=== PATIENT | female | born 1970 | race Caucasian/White ===

== ENCOUNTER 2025-01-21 17:01 | Outpatient (CLI) | payer OTHER, SELFPAY ==
--- NOTE | 2025-01-21 17:05 | XR_ITS ---
PROCEDURE INFORMATION: Exam: XR Left Shoulder Exam date and time: 01/21/2025 5:02 PM Age: 54 years old Clinical indication: Pain; Shoulder; Left; Additional info: Left shoulder pain S/P fall TECHNIQUE: Imaging protocol: Radiologic exam of the left shoulder. Views: 2 or more views. COMPARISON: No relevant prior studies available. FINDINGS: Bones/joints: Small marginal osteophytes and degenerative changes involving the left AC joint. No evidence of acute osseous abnormality. Soft tissues: Normal. IMPRESSION: 1. Small marginal osteophytes and degenerative changes involving the left AC joint. 2. No evidence of acute osseous abnormality.
== END 2025-01-21 23:59 | disposition home or self-care (01) ==
PROVIDERS: PCP Nurse Practitioner Family; Visit Provider Nurse Practitioner Family
DX: M19.012 Primary osteoarthritis, left shoulder (principal); M25.712 Osteophyte, left shoulder; W19.XXXA Unspecified fall, initial encounter
CPT/HCPCS: 73030

== ENCOUNTER 2025-02-08 14:33 | Outpatient (CLI) | payer OTHER, SELFPAY ==
--- OUTSIDE RECORDS SUMMARY | 2025-01-02 18:08 | XMS_ITS | Encounter Summary ---
Author Organization [facility] Address [address] [place] [address] Care Team Providers Care Recreation Attendant Supervisor Name Role Phone Mona Hi DO Primary Care Provider [phone] Source Comments This information has been disclosed [...] release of HIV test results or diagnoses. [id number] Reason for Referral * Imaging/Cardiovascular Scan (Routine) - New Request Specialty Diagnoses / Procedures Referred By Contac t Referred To Contact Cardiology Procedures Device Check - Remote Hubert Lux MD [address] [address] Phone: tel: fax: Referral ID Status Reason Start Date Expiration Date V isits Requested Visits Authorized [id number] New Request 01/02/2025 07/01/2025 1 1 Reason for Visit * Imaging/Cardiovascular Scan (Routine) - New Request Specialty Diagnoses / Procedures Referred By Contac t Referred To Contact Cardiology Procedures Device Check - Remote Hubert Lux MD [address] [place] [address] Phone: tel: fax: Referral ID Status Reason Start Date Expiration Date V isits Requested Visits Authorized [id number] New Request 01/02/2025 07/01/2025 1 1 Encounter Details Date Type Department Care Team (Latest Contact Info) Description 01/02/2025 6:08 PM EDT - 01/02/2025 11:59 PM EDT Hospital Encounter [facility] Cardiac Stress Lab at [facility] [address] [place] [address] Hubert Lux MD [address] [address] Discharge Disposition: Home or Self Care WITHOUT Home Care Services Social History Tobacco Use Types Packs/Day Years Used Date Smoking Tobacco: Never Smokeless Tobacco: Never Alcohol Use Standard Drinks/Week Comments Yes 7 (1 standard drink = 0.6 oz pur e alcohol) glass of wine [place] [employer] Answer Date Recorded In the past 12 months has [employer], gas, oil, or water [employer] threatened to shut off services in your [...] any time in the past 12 m [facility], were you homeless or living in a residential (including now)? No 10/21/2024 Yearly Questionnaire Answer [...] on filedocumented in this encounter Care Teams Recreation Attendant Supervisor Relationship Specialty Start Date End Date Mona Hi DO [address] [facility] [place] [address] [place] [address] PCP - General Family Medicine 10/22/24 documented as of this encounter
--- OUTSIDE RECORDS SUMMARY | 2025-01-31 15:23 | XMS_ITS | Encounter Summary ---
Author Organization [facility] Address [address] [place] [address] Care Team Providers Care Director Of Digital Platforms Name Role Phone Mona Hi DO Primary Care Provider [phone] Source Comments This information has been disclosed [...] release of HIV test results or diagnoses. [id number] Reason for Referral * Imaging/Cardiovascular Scan (Routine) - New Request Specialty Diagnoses / Procedures Referred By Contac t Referred To Contact Cardiology Procedures Device Check - Remote Hubert Lux MD [address] [place] [address] Phone: tel: fax: Referral ID Status Reason Start Date Expiration Date V isits Requested Visits Authorized [id number] New Request 01/31/2025 07/30/2025 1 1 Reason for Visit * Imaging/Cardiovascular Scan (Routine) - New Request Specialty Diagnoses / Procedures Referred By Inderjit t Referred To Contact Cardiology Procedures Device Check - Remote Hubert Lux MD [address] [place] [address] Phone: tel: fax: Referral ID Status Reason Start Date Expiration Date V isits Requested Visits Authorized [id number] New Request 01/31/2025 07/30/2025 1 1 Encounter Details Date Type Department Care Team (Latest Contact Info) Description 01/31/2025 3:23 PM EDT - 01/31/2025 11:59 PM EDT Hospital Encounter [facility] Cardiac Stress Lab at [facility] [address] [place] [address] Hubert Lux MD [address] [place] [address] Discharge Disposition: Home or Self Care WITHOUT Home Care Services Social History Tobacco Use Types Packs/Day Years Used Date Smoking Tobacco: Never Smokeless Tobacco: Never Alcohol Use Standard Drinks/Week Comments Yes 7 (1 standard drink = 0.6 oz pur e alcohol) glass of wine [employer] Answer Date Recorded In the past 12 months has [employer], gas, oil, or water [employer] threatened to shut off services in your [...] any time in the past 12 m [facility], were you homeless or living in a senior care (including now)? No 10/21/2024 Yearly Questionnaire Answer [...] on filedocumented in this encounter Care Teams Director Of Digital Platforms Relationship Specialty Start Date End Date Mona Hi DO [address] [facility] [place] [address] [place] [address] PCP - General Family Medicine 10/22/24 documented as of this encounter
--- OUTSIDE RECORDS SUMMARY | 2025-02-08 14:38 | XMS_ITS | Encounter Summary ---
Author Organization [facility] Address [facility] [place] [address] Care Team Providers Care Boot Lace Cutter Machine Name Role Phone Mona Hi DO Primary Care Provider [phone] Source Comments This information has been disclosed [...] release of HIV test results or diagnoses. [id number] Reason for Referral * Imaging/Cardiovascular Scan (Routine) - New Request Specialty Diagnoses / Procedures Referred By Inderjit tan Referred To Contact Cardiology Procedures Device Check - Remote Hubert Lux MD [address] [place] [address] Phone: tel: fax: Referral ID Status Reason Start Date Expiration Date V isits Requested Visits Authorized [id number] New Request 01/02/2025 07/01/2025 1 1 Encounter Details Date Type Department Care Team (Late st Contact Info) Description 12/31/2024 Orders Only [facility] Cardiac Stress Lab at [facility] Office [address] [facility] [address] [place] [phone] Hubert Lux MD [address] [place] [address] Social History Tobacco Use Types Packs/Day Years Used Date Smoking Tobacco: Never Smokeless Tobacco: Never Alcohol Use Standard Drinks/Week Comments Yes 7 (1 standard drink = 0.6 oz pur e alcohol) glass of wine [employer]ly [employer] Answer Date Recorded In the past 12 months has th e [employer], gas, oil, or water company threatened to shut off services in your [...] money to buy more. Never true 10/21/19 Within the past 12 months, t he [...] any time in the past 12 m [facility], were you homeless or living in a [...] on file documented as of this encounter Plan of Treatment Not on file documented as of this encounter Results * Device Check - Remote (01/02/2025 6:08 PM EDT) 12/31/2024 1:51 PM EDT Hubert Lux MD CV CARDIAC SERVICES ORDERABL ES Final Result Performing Organization Address City/State/[facility] Co de Phone Number RADNET documented in this encounter Visit Diagnoses Not on filedocumented in this encounter Care Teams Boot Lace Cutter Machine Relationship Specialty Start Date End Date Mona Hi DO [address] [facility] [place] [address] PCP - General Family Medicine 10/22/24 documented as of this encounter
--- OUTSIDE RECORDS SUMMARY | 2025-02-08 14:38 | XMS_ITS | Clinical Summary ---
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 30 tablet 5 Active acetaminophen (TYLENOL) 325 MG tablet Take 2 tablets (650 mg total) by mouth every 6 (six) hours as needed for mild pain or Temp > or equal to 101F (38.3C). 5 Active aspirin 81 MG chewable tabletIndicatio ns:Ischemic Stroke Chew 1 tablet (81 mg total) daily with breakfast Indications: Stroke Due To Limited Blood Flow. 5 Active atorvastatin (LIPITOR) 40 MG tablet Take 1 tablet (40 mg total) by mouth nightly. 30 tablet 5 Active multivitamin w/ minerals (THERA M PLUS) Tab/Cap tablet Take 1 each (1 tablet total) by mouth daily with lunch. 5 Active Active Problems Problem Noted Date Diagnosed Date Cervical radiculopathy 10/30/2024 Irritable bowel syndrome 10/30/2024 Migraine 10/30/2024 Hyperlipidemia 10/30/2024 Ischemic stroke 10/29/2024 Alzheimer's disease 02/01/2024 Encounters Date Type Department Care Team Description 11/08/2024 Plan of Care Documentation [facility] [address] [place] [address] 10/29/2024 11:30 AM EST - 11/12/2024 10:45 AM EDT Hospital Encounter [facility] [address] [place] [address] Nehemiah Cooper MD Williams, Jacob Z, MD Jones, Matthew P, MD Discharge Disposition: Home under care of Home Health Org from Last 3 Months Social History Tobacco Use Types Packs/Day Years Used Date Smoking Tobacco: Never Smokeless Tobacco: Never Tobacco Cessation:Counseling Given: Not Answered Alcohol Use Standard Drinks/Week Comments Never 0 (1 standard drink = 0.6 oz pur e alcohol) [facility] Utilities Answer Date Recorded In the past 12 months has th e electric, gas, oil, or water company threatened to shut off services in your home? No 10/31/2024 Social Connection and Isolation Panel [NHANES] A nswer Date Recorded In a typical week, how many times do you talk on the phone with family, friends, or neighbors? Three times a week 11/01/19 How often do you get togethe r with friends or relatives? Three times a week 10/31/2024 How often do you attend chur ch or baptism services? 1 to 4 times per year 10/31/2024 Do you belong to any clubs o r organizations such as episcopalian groups, unions, fraternal or athletic groups, or school groups? Yes 10/31/2024 How often do you attend meet ings of the clubs or organizations you belong to? 1 to 4 times per year 10/31/2024 Are you , , di vorced, , never , or living with a partner? Never 10/31/2024 AUDIT-C Answer Date Recorded Q1: How often do you have a drink containing alcohol? Never 10/29/2024 Q2: How many drinks containi ng alcohol do you have on a typical day when you are drinking? Patient does not drink Q3: How often do you have si x or more drinks on one occasion? Never 10/29/2024 Overall Financial Resource Strain (CARDIA) Answe r Date Recorded How hard is it for you to pa y for the very basics like food, housing, medical care, and heating? Not hard at all 10/31/2024 [facility] [place] [facility] Occupat ional Health - Occupational Stress Questionnaire Answer Date Recorded Do you feel stress - tense, restless, nervous, or anxious, or unable to sleep at night because your mind is troubled all the time - these days? Not at all 11/12/2024 Hunger Vital Sign Answer Date Recorded Within the past 12 months, y ou worried that your food would run out before you got the money to buy more. Never true 11/01/19 25 Within the past 12 months, t he food you bought just didn't last and you didn't have money to get more. Never true 10/31/2024 Housing Stability Vital Sign Answer Sharad e Recorded In the last 12 months, was t here a time when you were not able to pay the mortgage or rent on time? No 10/31/2024 In the past 12 months, how m any times have you moved where you were living? 0 10/31/2024 At any time in the past 12 m [facility], were you homeless or living in a mcfp (including now)? No 10/31/2024 Domestic Abuse Assessment Answer Date R ecorded Do you feel safe in your relationships at home? Yes 11/08/2024 Physical Abuse Denies 11/08/2024 HRSN Domestic Abuse - Type of Abuse Not on file 11/08/2024 HRSN Domestic Abuse - Time Frame Not on file 11/08/2024 HRSN Domestic Abuse - Signs and Symptoms Not on file 11/08/2024 Verbal Abuse Denies 11/08/2024 HRSN Domestic Abuse - Reported To Not on file 11/08/2024 SM SDOH Transportation Source Answer Da te Recorded Has lack of transportation k ept you from medical appointments or from getting medications? No 11/12/2024 Has lack of transportation k ept you from meetings, work, or from getting things needed for daily living? No 11/12/2024 HRSN Depression PHQ-2 Answer Date Recor ded Feeling down, depressed, or hopeless 0 11/12/2024 Little interest or pleasure in doing things 0 11/12/2024 Comments Unknown Sex and Gender Information Value Date Recorded Sex Assigned at Not on file Legal Sex Female 3:44 PM EST Gender Identity Not on file Sexual Orientation Not on file Last Filed Vital Signs Vital Sign Reading Time Taken Comments Blood Pressure 114/78 11/12/2024 5:34 AM EDT Pulse 62 11/12/2024 5:34 AM EDT Temperature 36.9 C (98.5 F) 11/12/2024 5:34 AM EDT Respiratory Rate 16 11/12/2024 5:34 AM EDT Oxygen Saturation 96% 11/12/2024 5:34 AM EDT Inhaled Oxygen Concentration - - Weight 50.1 kg (110 lb 8 oz) 11/12/2024 4:00 AM EDT Height 152.4 cm (5') 10/29/2024 11:57 AM EST Body Mass Index 21.58 10/29/2024 11:57 AM EST Plan of Treatment Not on file Medical Devices Implanted Type Area Salesperson Men'S Hats Device Identifier Shelf Expiration Date Model / Serial / Lot Implantable Loop Recorder- [id number] Implanted:10/28 (Quantity not on file) Implantable Loop Recorder Procedures Procedure Name Priority Date/Time Associated Diagnosis Comments INCENTIVE SPIROMETRY RT Routine 11/11/2024 6:00 AM EDT INCENTIVE SPIROMETRY RT Routine 11/10/2024 10:00 PM EDT INCENTIVE SPIROMETRY RT Routine 11/09/2024 10:00 PM EDT QUANTIFERON TBGLD PLUS Routine 11/09/2024 4:30 PM EDT INCENTIVE SPIROMETRY RT Routine 11/08/2024 10:00 PM EDT INCENTIVE SPIROMETRY RT Routine 11/08/2024 6:00 AM EDT from Last 3 Months Results * Quantiferon TB gold plus (11/09/2024 4:30 PM EDT) [facility] TB-SPOT NEGATIVE NEGATIVE 11/11/2024 2:57 PM EDT [facility] LAB Comment: Performed at: [facility]. (NOTE) Negative Normal Value: Negative A negative test result does not exclude the possibility of exposure to or infection with Mycobacterium tuberculosis (M. tuberculosis). Patients with recent exposure to TB infected individuals exhibiting a negative T-SPOT.TB result should be considered for retesting within 6 weeks or if other relevant clinical symptoms indicate. Results from T-SPOT.TB testing must be used in conjunction with each individual's epidemiological history, current medical status, and results of other diagnostic evaluations. The T SPOT.TB test is qualitative and results are reported as positive, borderline or negative, given that the test controls perform as expected. In line with the Centers for Disease Control and Prevention's 2010 recommendation to report quantitative measurements alongside the qualitative result, the laboratory provides spot counts for informational purposes only. The T-SPOT.TB test should not be interpreted as a quantitative test. NILNEGCTRL PASSED 11/11/2024 2:57 PM EDT [facility] PANEL A SPOT COUNT CORRECTED FOR NEG CONTROL 0 11/11/2024 2:57 PM EDT [facility] PANEL B SPOT COUNT CORRECTED FOR NEG CONTROL 0 11/11/2024 2:57 PM EDT [facility] POSITIVE CONTROL PASSED 11/12/19 2:57 PM EDT [facility] 11/09/2024 4:30 PM EDT 11/09/2024 5:58 PM EDT us Moses Serrano MD LAB BLOOD ORDERABLES Final Re sult [facility] [id number] [id number], [place] from Last 3 Months Advance Directives * Full Resuscitation (Latest Code Status on File) Date Activated Date Inactivated Comments 10/29/2024 8:37 PM 11/12/2024 12:48 PM Question Answer Comments I have discussed this order with the patient or his/her surrogate and have received informed consent. Yes
--- OUTSIDE RECORDS SUMMARY | 2025-02-08 14:39 | XMS_ITS | Clinical Summary ---
Author Organization [facility] Address [facility] [place] [address] Care Team Providers Care Wildlife Policy Professional Name Role Phone Mona Hi DO Primary Care Provider [phone] Source Comments This information has been disclosed to you from confidential records protectedfrom disclosure by state law. You shall make no further disclosure of thisinformation without the specific, written, and informed release of theindividual to whom it pertains, or as otherwise permitted by law. A generalauthorization for the release of medical or other information is not sufficientfor the purposes of therelease of HIV test results or diagnoses. [id number] Allergies No known active allergies Medications donepeziL (ARICEPT) 10 MG tablet Take 1 tablet (10 mg total) by mouth at bedtime. Active aspirin 81 MG chewable tablet Chew 1 tablet (81 mg total) by mouth daily with breakfast. 10/28/2024 Active atorvastatin (LIPITOR) 40 MG tablet Take 1 tablet (40 mg total) by mouth at bedtime. 10/27/2024 Active apixaban (ELIQUIS) 2.5 mg Tab Take 1 tablet (2.5 mg total) by mouth. Active Active Problems Problem Noted Date Diagnosed Date Acute ischemic right MCA stroke 10/24/2024 Alzheimer disease 02/01/2024 Encounters Date Type Department Care Team Description 01/31/2025 3:23 PM EDT - 01/31/2025 11:59 PM EDT Hospital Encounter [facility] Cardiac Stress Lab at [facility] [address] [facility] [address] [place] [address] Hubert Lux MD Discharge Disposition: Home or Self Care WITHOUT Home Care Services 01/31/2025 Orders Only [facility] Cardiac Stress Lab at [facility] [address] [place] [address] Hubert Lux MD 01/02/2025 6:08 PM EDT - 01/02/2025 11:59 PM EDT Hospital Encounter [facility] Cardiac Stress Lab at [facility] [address] [place] [address] Hubert Lux MD Discharge Disposition: Home or Self Care WITHOUT Home Care Services 12/31/2024 Orders Only [facility] Cardiac Stress Lab at [facility] [address] [place] [address] Hubert Lux MD 11/30/2024 6:15 PM EDT - 11/30/2024 11:59 PM EDT Hospital Encounter [facility] Cardiac Stress Lab at [facility] [address] [place] [address] Jeremie Pope DO Discharge Disposition: Home or Self Care WITHOUT Home Care Services 11/30/2024 Orders Only [facility] Cardiac Stress Lab at [facility] [address] [place] [address] Jeremie Pope DO 11/29/2024 Telephone [facility] Neurology at [facility] [address] [place] [address] Brunilda Corss DO 11/25/2024 2:00 PM EDT Office Visit [facility] Neurology at [facility] [address] [place] [address] Brunilda Cross DO Cerebrovascular accident (CVA) due to other mechanism ([facility]) (Primary Dx) 11/24/2024 Telephone [facility] Neurology at [facility] [address] [place] [address] Brunilda Cross DO from Last 3 Months Family History Medical History Relation Comments Cancer Father Relation Status Comments Father Social History Tobacco Use Types Packs/Day Years Used Date Smoking Tobacco: Never Smokeless Tobacco: Never Tobacco Cessation:Counseling Given: Not Answered Alcohol Use Standard Drinks/Week Comments Yes 7 (1 standard drink = 0.6 oz pur e alcohol) glass of wine nightly [employer] Answer Date Recorded In the past 12 months has th e [employer], gas, oil, or water [employer] threatened to shut off services in your [...] any time in the past 12 m [facility], were you homeless or living in a correction (including now)? No 10/21/2024 Yearly Questionnaire Answer [...] Sign Reading Time Taken Comments Blood Pressure 132/86 11/25/2024 2:09 PM EDT Pulse 63 11/25/2024 2:09 PM EDT Temperature 36.9 C (98.4 F) 10/29/2024 7:50 AM EST Respiratory Rate 16 10/29/2024 7:50 AM EST Oxygen Saturation 99% 11/25/2024 2:09 PM EDT Inhaled Oxygen Concentration 99% 11/25/2024 2 :09 PM EDT Weight 50 kg (110 lb 4.8 oz) 11/25/2024 2:09 PM EDT Height 154.9 cm (5' 1 ) 11/25/2024 2:09 PM EDT Body Mass Index 20.84 11/25/2024 2:09 PM EDT Plan of Treatment Health Maintenance Due Date Last Done Comments Abnormal Colonoscopy Follow Up 1968 HIV Screening 1986 Immunization: Hepatitis B (1 of 3 - 19+ 3-dose series) 1987 Cervical Cancer Screening/Pap Smear (MyChart) 05/08/19 98 Mammogram (MyChart) 2008 Cologuard (FIT-DNA) 2013 Colonoscopy 2013 Colorectal Cancer Screening (MyChart) 2013 Stool Testing (gFOBT) 2013 Immunization: Pneumococcal (1 of 1 - PCV) 2018 Immunization: Zoster (1 of 2) 2018 Immunization: COVID-19 (2 - season) 2024 11/26/2020 Immunization: DTaP/Tdap/Td (2 - Td or Tdap) 06/06/2024 06/06/2014 Depression Screening 01/28/2025 01/29/2024 Immunization: Influenza (MyChart) (Season Ended) 05/0206/06/2014 Alcohol Misuse Screening 10/21/2025 10/21/2024 Hepatitis C Screening (MyChart) Completed Medical Devices Implanted Type Area Office Cashier Device Identifier Shelf Expiration Date Model / Serial / Lot Recorder Crd Linq Ii Ins Implanted:Qty: 1 on 10/28/2024 by Hubert Lux MD at [facility] Main Implantable Loop Recorder [employer] 02/01/2026 [id number] / [id number] / Device Closure Angio-Seal Vip Bondek-Plus Polyglyd L70 Cm Od8 Fr Odsec.038 In Vascular Hemostatic Bioabsorbable Insertion Sheath Guidewire Sterile Latex Free Disposable - [id number] Implanted:Qty: 1 on 10/21/2024 by Hilario Sainz MD at [facility] Main [facility] [employer] 12/16/2024 [id number] / / [id number] Procedures Procedure Name Priority Date/Time Associated Diagnosis Comments DEVICE CHECK - REMOTE Routine 01/31/2025 3:23 PM EDT DEVICE CHECK - REMOTE Routine 01/02/2025 6:08 PM EDT DEVICE CHECK - REMOTE Routine 11/30/2024 6:15 PM EDT ED HCV AB REFLEX TO HCV QUANT Routine 10/21/2024 12:22 PM EST from Last 3 Months or Most Recently Relevant to Health Maintenance Results * Device Check - Remote (01/31/2025 3:23 PM EDT) Only the most recent of3 resultswithin the time period is included. 01/31/2025 1:56 PM EDT us Hubert Lux MD [facility] CARDIAC SERVICES ORDERABL ES Final Result RADNET * ED HCV Ab Reflex To HCV Quant (10/21/2024 12:22 PM EST) HCV Ab Nonreactive Nonreactive 10/21/2024 2:39 PM EST [facility] Comment:Health Department no tified in accordance with reportable infectious disease guidelines. HCVAB Number 0.03 0.00 - 0.79 S/CO 10/21/2024 2:39 PM EST [facility] Serum 10/21/2024 12:2 2 PM EST 10/21/2024 1:14 PM EST us Long Flores MD LAB BLOOD ORDERABLES Final Resul t [facility] [address] 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
--- OUTSIDE RECORDS SUMMARY | 2025-02-08 14:39 | XMS_ITS | Encounter Summary ---
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 [id number] Reason for Referral * Imaging/Cardiovascular Scan (Routine) - New Request Specialty Diagnoses / Procedures Referred By Inderjit tan Referred To Contact Cardiology Procedures Device Check - Remote Hubert Lux MD [address] [address] Phone: tel: fax: Referral ID Status Reason Start Date Expiration Date V isits Requested Visits Authorized [id number] New Request 01/31/2025 07/30/2025 1 1 Encounter Details Date Type Department Care Team (Late st Contact Info) Description 01/31/2025 Orders Only [facility] Cardiac Stress Lab at [facility] Office [address] [facility] [address] [place] [address] Hubert Lux MD [address] [place] [address] Social History Tobacco Use Types Packs/Day Years Used Date Smoking Tobacco: Never Smokeless Tobacco: Never Alcohol Use Standard Drinks/Week Comments Yes 7 (1 standard drink = 0.6 oz pur e alcohol) glass of wine nightly Utilities Answer Date Recorded In the past 12 months has e [employer] gas, oil, or water company threatened to [...] any time in the past 12 m [facility], were you homeless or living in a [...] 3:23 PM EDT) 01/31/2025 1:56 PM EDT Hubert Lux MD CV CARDIAC SERVICES ORDERABL ES Final Result Performing Organization Address City/State/[facility] Co de Phone Number RADNET documented in this encounter Visit Diagnoses Not on filedocumented in this encounter Care Teams Broiler Chef Or Cook Relationship Specialty Start Date End Date Mona Hi DO [address] [facility] [place] [address] PCP - General Family Medicine 10/22/24 documented as of this encounter
--- OUTSIDE RECORDS SUMMARY | 2025-02-08 14:39 | XMS_ITS | Encounter Summary ---
Author Organization [facility] Address [facility] [place] [address] Care Team Providers Care Web Site Specialist Name Role Phone Mona Hi DO Primary Care Provider [phone] Source Comments This information has been disclosed [...] release of HIV test results or diagnoses. [id number] Reason for Referral * Imaging/Cardiovascular Scan (Routine) - Pending Review Specialty Diagnoses / Procedures Referred By Inderjit tan Referred To Contact Cardiology Procedures Device Check - Remote Jeremie Pope DO [address] [place] [address] Phone: tel: fax: Referral ID Status Reason Start Date Expiration Date V isits Requested Visits Authorized [id number] Pending Review 11/30/2024 05/29/2025 1 1 Encounter Details Date Type Department Care Team (Late st Contact Info) Description 11/30/2024 Orders Only [facility] Cardiac Stress Lab at [facility] Office [address] [place] [address] Jeremie Pope DO [address] [place] [address] Social History Tobacco Use Types Packs/Day Years Used Date Smoking Tobacco: Never Smokeless Tobacco: Never Alcohol Use Standard Drinks/Week Comments Yes 7 (1 standard drink = 0.6 oz pur e alcohol) glass of wine nightly Utilities Answer Date Recorded In the past 12 months has e [employer], gas, oil, or water company threatened to [...] any time in the past 12 m [facility], were you homeless or living in a senior care (including now)? No 10/21/2024 Yearly Questionnaire Answer Date Record ed Do you need any assistance w ith obtaining housing, meals, medication, transportation or medical equipment? No 01/28 Assistance needed for: Not on file 05/30/202 4 Yearly Questionnaire Answer Date Record ed [...] encounter Results * Device Check - Remote (11/30/2024 6:15 PM EDT) 11/30/2024 1:51 PM EDT us Jeremie Pope DO CV CARDIAC SERVICES ORDERABLES F inal Result RADNET documented in this encounter Visit Diagnoses Not on filedocumented in this encounter Care Teams Web Site Specialist Relationship Specialty Start Date End Date Mona Hi DO [address] [facility] [address] [place], [place] [id number] PCP - General Family Medicine 10/22/24 documented as of this encounter
--- NOTE | 2025-02-08 14:45 | US_ITS ---
FINAL REPORT CLINICAL HISTORY: Slow capillary refill FINDINGS: ANKLE-BRACHIAL PRESSURE INDICES Pressure indices are as follows: RIGHT LOWER EXTREMITY: Ankle-brachial pressure index: 1.1 Comments: Normal LEFT LOWER EXTREMITY: Ankle-brachial pressure index: 1.1 Comments: Normal IMPRESSION: No evidence of significant obstructive peripheral vascular disease of the lower extremities Reviewed, Interpreted and Dictated by Michael Rg MD Transcribed by Mindy Franklin Authenticated and [facility]
[2025-02-08 16:55] LABS: Free T4 (Free Thyroxine) 0.82 ng/dl (0.78-2.19)
[2025-02-08 18:26] LABS: Alanine Aminotransferase 51 U/L (12-78); Albumin Level 4.6 g/dl (3.5-5.0); Alkaline Phosphatase 99 U/L (38-126); Anion Gap 12.9 mEq/L (5-15); Aspartate Amino Transferase 64 U/L (14-36); Bilirubin,Direct 0.3 mg/dl (0.0-0.4); Bilirubin,Indirect 0.4 mg/dL (0.0-0.9); Bilirubin,Total 0.7 mg/dl (0.2-1.3); Bilirubin,Unconjugated 0.4 mg/dL (0.0-1.1); Blood Urea Nitrogen 11 mg/dl (7-17); Calcium 9.3 mg/dl (8.4-10.2); Carbon Dioxide 19 mmol/L (22.0-30.0); Chloride 109 mmol/L (98-107); Chol/HDL Ratio 2.5 (1-3.5); Cholesterol 119 mg/dl (140-200); Estimated Glomerular Filt Rate 128 ml/min (>60); GFR (African American) 154 ML/MIN (>60); Glucose 91 mg/dl (74-100); HDL Cholesterol 47 mg/dl (40-60); Magnesium 1.9 mg/dl (1.6-2.3); Potassium 4.9 mmoL/L (3.5-5.1); Sodium 136 mmol/L (136-145); Total Protein,Serum 7.2 g/dl (6.3-8.2); Triglycerides 108 mg/dl (30-150); VLDL Cholesterol 22 mg/dL (0-40)
[2025-02-08 18:37] LABS: C-Reactive Protein 0.7 mg/L (0-4); Direct LDL Cholesterol 48.03 mg/dL (100-129)
[2025-02-08 18:56] LABS: Thyroid Stimulating Hormone 1.12 uIU/mL (0.465-4.68)
== END 2025-02-08 23:59 | disposition home or self-care (01) ==
PROVIDERS: Internal Medicine; PCP Nurse Practitioner Family; Visit Provider Nurse Practitioner Family
DX: G30.9 Alzheimer's disease, unspecified (principal); F02.80 Dementia in other diseases classified elsewhere, unspecified severity, without behavioral disturbance, psychotic disturbance, mood disturbance, and anxiety; I63.9 Cerebral infarction, unspecified; L81.9 Disorder of pigmentation, unspecified; R09.89 Other specified symptoms and signs involving the circulatory and respiratory systems; R94.31 Abnormal electrocardiogram [ECG] [EKG]
CPT/HCPCS: 36415; 80048; 80061; 80076; 83735; 84439; 84443; 86140; 93923

== ENCOUNTER 2025-02-22 12:46 | Outpatient (CLI) | payer OTHER, SELFPAY ==
--- OUTSIDE RECORDS SUMMARY | 2025-01-02 18:08 | XMS_ITS | Encounter Summary ---
Author Organization [facility] Address [facility] [place] [address] Care Team Providers Care Bulbs Farmworker Name Role Phone Mona Hi DO Primary Care Provider [phone] Source Comments This information has been disclosed [...] release of HIV test results or diagnoses. [id number] Reason for Referral * Imaging/Cardiovascular Scan (Routine) - Pending Review Specialty Diagnoses / Procedures Referred By Contac t Referred To Contact Cardiology Procedures Device Check - Remote Hubert Lux MD [address] [address] Phone: tel: fax: Referral ID Status Reason Start Date Expiration Date V isits Requested Visits Authorized [id number] Pending Review 01/02/2025 07/01/2025 1 1 Reason for Visit * Imaging/Cardiovascular Scan (Routine) - Pending Review Specialty Diagnoses / Procedures Referred By Inderjit t Referred To Contact Cardiology Procedures Device Check - Remote Hubert Lux MD [address] [address] Phone: tel: fax: Referral ID Status Reason Start Date Expiration Date V isits Requested Visits Authorized [id number] Pending Review 01/02/2025 07/01/2025 1 1 Encounter Details Date Type Department Care Team (Latest Contact Info) Description 01/02/2025 6:08 PM EDT - 01/02/2025 11:59 PM EDT Hospital Encounter [facility] Cardiac Stress Lab at [facility] [address] [place] [address] Hubert Lux MD [address] [address] Discharge Disposition: Home or Self Care WITHOUT Home Care Services Social History Tobacco Use Types Packs/Day Years Used Date Smoking Tobacco: Never Smokeless Tobacco: Never Alcohol Use Standard Drinks/Week Comments Yes 7 (1 standard drink = 0.6 oz pur e alcohol) glass of wine [employer] Answer Date Recorded In the past 12 months has [employer], gas, oil, or water [employer] threatened to shut off services in your [...] any time in the past 12 m [facility], were you homeless or living in a care home (including now)? No 10/21/2024 Yearly Questionnaire Answer [...] on filedocumented in this encounter Care Teams Bulbs Farmworker Relationship Specialty Start Date End Date Mona Hi DO [address] [facility] [address] [place], [place] [id number] PCP - General Family Medicine 10/22/24 documented as of this encounter
--- OUTSIDE RECORDS SUMMARY | 2025-01-31 15:23 | XMS_ITS | Encounter Summary ---
Author Organization [facility] Address [facility] [place] [address] Care Team Providers Care Bakeshop Cleaner Name Role Phone Mona Hi DO Primary Care Provider [phone] Source Comments This information has been disclosed [...] release of HIV test results or diagnoses. [id number] Reason for Referral * Imaging/Cardiovascular Scan (Routine) - Pending Review Specialty Diagnoses / Procedures Referred By Contac t Referred To Contact Cardiology Procedures Device Check - Remote Hubert Lux MD [address] [place] [address] Phone: tel: fax: Referral ID Status Reason Start Date Expiration Date V isits Requested Visits Authorized [id number] Pending Review 01/31/2025 07/30/2025 1 1 Reason for Visit * Imaging/Cardiovascular Scan (Routine) - Pending Review Specialty Diagnoses / Procedures Referred By Inderjit tan Referred To Contact Cardiology Procedures Device Check - Remote Hubert Lux MD [address] [place] [address] Phone: tel: fax: Referral ID Status Reason Start Date Expiration Date V isits Requested Visits Authorized [id number] Pending Review 01/31/2025 07/30/2025 1 1 Encounter Details Date Type Department Care Team (Latest Contact Info) Description 01/31/2025 3:23 PM EDT - 01/31/2025 11:59 PM EDT Hospital Encounter [facility] Cardiac Stress Lab at [facility] Office [address] [facility] [address] [place] [address] Hubert Lux MD [address] [place] [address] Discharge Disposition: Home or Self Care WITHOUT Home Care Services Social History Tobacco Use Types Packs/Day Years Used Date Smoking Tobacco: Never Smokeless Tobacco: Never Alcohol Use Standard Drinks/Week Comments Yes 7 (1 standard drink = 0.6 oz pur e alcohol) glass of wine [employer] Answer Date Recorded In the past 12 months has [employer], gas, oil, or water [employer] threatened to shut off services in your [...] any time in the past 12 m [facility], were you homeless or living in a detention (including now)? No 10/21/2024 Yearly Questionnaire Answer [...] Diagnosis Comments DEVICE CHECK - REMOTE Routine 01/31/2025 3:23 PM EDT documented in this encounter Results * Device Check - Remote (01/31/2025 3:23 PM EDT) 01/31/2025 1:56 PM EDT us Hubert Lux MD CV CARDIAC SERVICES ORDERABL ES Final Result RADNET documented in this encounter Visit Diagnoses Not on filedocumented in this encounter Care Teams Bakeshop Cleaner Relationship Specialty Start Date End Date Mona Hi DO [address] [facility] [place] [address] [place] [address] PCP - General Family Medicine 10/22/24 documented as of this encounter
--- NOTE | 2025-02-22 | CA_ITS ---
APPROVED REPORT EXAM: Comprehensive 2D, Doppler, and color-flow Echocardiogram Exhibition Organiser: Abbie Shea CRT Ht: 5 ft 0 in Wt: 110lbs BSA: 1.45 BP: 146/90 mmHg Indications: Abnormal ECG, Shortness of Breath, stroke 10/26, ROBIN at 2D Dimensions LA Volume 38.80 mL LA Volume Index 26.20 mL/m2 (M/F) 16-34 M-Mode Dimensions RVDd 2.36 cm (0.9-2.6) LA Diam 3.17 cm (1.9-4.0) LVDd 4.15 cm (3.5-5.7) LVDs 2.97 cm (3.5-5.7) IVSd 1.02 cm (0.6-1.1) PWd 0.64 cm (0.6-1.1) EF (Teich) 55.20% FS 28.40% EDV (Teich) 76.40 mL TAPSE 2.73 (<1.7) ESV (Teich) 34.20 mL LV Diastology E Decel Time 150 (160-240 msec) E/A Ratio 1.37 MED A' 8.60 cm/s LAT A' 10.90 cm/s Aortic Valve AI PHT 638.00 ms AO Peak GR. 5.70 mmHg Mitral Valve MV E Max Arnaldo. 82.0 (40-130 cm/s) MV A Velocity 60.0 (40-130 cm/s) E/A Ratio 1.37 MV PHT 44.0 ms Pulmonary Valve PV Peak Velocity 116.0 (50-150 cm/s) Tricuspid Valve TR P. Velocity 271.00 cm/s RAP Estimate 10.00 mmHg RVSP 39.30 mmHg Left Ventricle The left ventricle is normal size. The left ventricular systolic function is normal. The left ventricular ejection fraction is within the normal range. There is increased LV wall thickness. There is normal LV segmental wall motion. The left ventricular diastolic function is normal. LVEF is 60%. Right Ventricle The right ventricle is normal size. The right ventricular systolic function is normal. Atria The left atrium size is normal. The right atrium size is normal. There is no Doppler evidence of interatrial shunt. Aortic Valve The aortic valve is mildly thickened. There is no aortic valvular stenosis. Moderate aortic regurgitation. Mitral Valve The mitral valve is normal in structure. No evidence of mitral valve stenosis. Mild mitral regurgitation. Tricuspid Valve Tricuspid valve is grossly normal in structure and function. Trace tricuspid regurgitation. There is insufficient TR jet to estimate RVSP. Pulmonic Valve The pulmonary valve is normal in structure. Trace pulmonic regurgitation. Great Vessels The aortic root is normal in size. IVC is normal in size and collapses >50% with inspiration. Pericardium There is no pericardial effusion. Other Information Study Quality: Fair Conclusion Normal biventricular systolic function. Moderate AI. Mild MR. Electronically signed by : Lela Jeffries MD 02/26/2025 00:25:05
--- OUTSIDE RECORDS SUMMARY | 2025-02-22 12:48 | XMS_ITS | Encounter Summary ---
Author Organization [facility] Address [facility] [place] [address] Care Team Providers Care Medical Transcription Radiology Name Role Phone Mona Hi DO Primary Care Provider [phone] Source Comments This information has been disclosed [...] release of HIV test results or diagnoses. [id number] Reason for Referral * Imaging/Cardiovascular Scan (Routine) - Pending Review Specialty Diagnoses / Procedures Referred By Inderjit tan Referred To Contact Cardiology Procedures Device Check - Remote Hubert Lux MD [address] [place] [address] Phone: tel: fax: Referral ID Status Reason Start Date Expiration Date V isits Requested Visits Authorized [id number] Pending Review 01/02/2025 07/01/2025 1 1 Encounter Details Date Type Department Care Team (Late st Contact Info) Description 12/31/2024 Orders Only [facility] Cardiac Stress Lab at [facility] [address] [place] [phone] Hubert Lux MD [address] [place] [address] Social History Tobacco Use Types Packs/Day Years Used Date Smoking Tobacco: Never Smokeless Tobacco: Never Alcohol Use Standard Drinks/Week Comments Yes 7 (1 standard drink = 0.6 oz pur e alcohol) glass of wine nightly Utilities Answer Date Recorded In the past 12 months has e [employer], gas, oil, or water company threatened to [...] any time in the past 12 m [facility], were you homeless or living in a long-term (including now)? No 10/21/2024 Yearly Questionnaire Answer [...] ORDERABL ES Final Result Performing Organization Address City/State/[facility] Co de Phone Number RADNET documented in this encounter Visit Diagnoses Not on filedocumented in this encounter Care Teams Medical Transcription Radiology Relationship Specialty Start Date End Date Mona Hi DO [address] [facility] [place] [address] PCP - General Family Medicine 10/22/24 documented as of this encounter
--- OUTSIDE RECORDS SUMMARY | 2025-02-22 12:48 | XMS_ITS | Encounter Summary ---
Author Organization [facility] Address [facility] [place] [address] Care Team Providers Care Cio Name Role Phone Mona Hi DO Primary Care Provider [phone] Source Comments This information has been disclosed [...] release of HIV test results or diagnoses. [id number] Reason for Referral * Imaging/Cardiovascular Scan (Routine) - Pending Review Specialty Diagnoses / Procedures Referred By Inderjit tan Referred To Contact Cardiology Procedures Device Check - Remote Jeremie Pope DO [address] [place] [address] Phone: tel: fax: Referral ID Status Reason Start Date Expiration Date V isits Requested Visits Authorized [id number] Pending Review 11/30/2024 05/29/2025 1 1 Encounter Details Date Type Department Care Team (Late st Contact Info) Description 11/30/2024 Orders Only [facility] Cardiac Stress Lab at [facility] Office [address] [place] [phone] Jeremie Pope DO [address] [place] [address] Social History Tobacco Use Types Packs/Day Years Used Date Smoking Tobacco: Never Smokeless Tobacco: Never Alcohol Use Standard Drinks/Week Comments Yes 7 (1 standard drink = 0.6 oz pur e alcohol) glass of wine nightly Utilities Answer Date Recorded In the past 12 months has e [employer], gas, oil, or water company threatened to [...] any time in the past [address] [facility], were you homeless or living in a chcf (including now)? No 10/21/2024 Yearly Questionnaire Answer [...] on filedocumented in this encounter Care Teams Cio Relationship Specialty Start Date End Date Mona Hi DO [address] [facility] [address] [place], [place] [id number] PCP - General Family Medicine 10/22/24 documented as of this encounter
--- OUTSIDE RECORDS SUMMARY | 2025-02-22 12:48 | XMS_ITS | Clinical Summary ---
Author Organization [facility] Address [address] [place] [address] Phone Care Team Providers Care Lodging Facilities Attendant Name Role Phone Unavailable Primary Care Provider [...] 10/30/2024 Ischemic stroke 10/29/2024 Alzheimer's disease 02/01/2024 Social History Tobacco Use Types Packs/Day Years Used Date Smoking Tobacco: Never Smokeless Tobacco: Never Tobacco Cessation:Counseling Given: Not Answered Alcohol Use Standard Drinks/Week Comments Never 0 (1 standard drink = 0.6 oz pur e alcohol) [facility] Utilities Answer Date Recorded In the past [...] often do you attend chur ch or rastafari services? 1 to 4 times per year 10/31/2024 Do you belong to any clubs o r organizations such as hinduism groups, unions, fraternal or athletic groups, or [...] and heating? Not hard at all 10/31/2024 [facility] of Occupat ional Health - Occupational Stress [...] any time in the past 12 m [facility], were you homeless or living in a longterm (including now)? No 10/31/2024 Domestic Abuse Assessment [...] - Reported To Not on file 11/08/2024 SDOH Transportation Source Answer Da te Recorded [...] on file Medical Devices Implanted Type Area Blasting Clay Miner Device Identifier Shelf Expiration Date Model / Serial / Lot Implantable Loop Recorder- 025 Implanted:10/28 (Quantity not on file) Implantable Loop Recorder Advance Directives * Full Resuscitation (Latest Code Status on File) Date Activated Date Inactivated Comments 10/29/2024 8:37 PM 11/12/2024 12:48 PM Question Answer Comments I have discussed this order with the patient or his/her surrogate and have received informed consent. Yes
--- OUTSIDE RECORDS SUMMARY | 2025-02-22 12:49 | XMS_ITS | Encounter Summary ---
Author Organization [facility] Address [facility] [place] [address] Care Team Providers Care System Specialist Name Role Phone Mona Hi DO Primary Care Provider [phone] Source Comments This information has been disclosed [...] release of HIV test results or diagnoses. [id number] Reason for Referral * Imaging/Cardiovascular Scan (Routine) - Pending Review Specialty Diagnoses / Procedures Referred By Inderjit tan Referred To Contact Cardiology Procedures Device Check - Remote Hubert Lux MD [address] [place] [address] Phone: tel: fax: Referral ID Status Reason Start Date Expiration Date V isits Requested Visits Authorized [id number] Pending Review 01/31/2025 07/30/2025 1 1 Encounter Details Date Type Department Care Team (Late st Contact Info) Description 01/31/2025 Orders Only [facility] Cardiac Stress Lab at [facility] Office [address] [place] [address] Hubert Lux MD [address] [place] [phone] Social History Tobacco Use Types Packs/Day Years Used Date Smoking Tobacco: Never Smokeless Tobacco: Never Alcohol Use Standard Drinks/Week Comments Yes 7 (1 standard drink = 0.6 oz pur e alcohol) glass of wine nightly Utilities Answer Date Recorded In the past 12 months has e [employer], gas, oil, or water company threatened to [...] any time in the past 12 m [facility], were you homeless or living in a fpc (including now)? No 10/21/2024 Yearly Questionnaire Answer [...] ORDERABL ES Final Result Performing Organization Address City/State/[facility] Co de Phone Number RADNET documented in this encounter Visit Diagnoses Not on filedocumented in this encounter Care Teams System Specialist Relationship Specialty Start Date End Date Mona Hi DO [address] [facility] [place] [address] PCP - General Family Medicine 10/22/24 documented as of this encounter
--- OUTSIDE RECORDS SUMMARY | 2025-02-22 12:49 | XMS_ITS | Encounter Summary ---
Author Organization [facility] Address [address] [place] [address] Care Team Providers Care Cold Food Packer Name Role Phone Mona Hi DO Primary Care Provider [phone] Source Comments This information has been disclosed [...] release of HIV test results or diagnoses. [id number] Health Encounter Details Date Type Department Care Team (Late st Contact Info) Description 02/10/2025 Telephone [facility] [address] [place] [address] Mulu Hancock, RN Social History Tobacco Use Types Packs/Day Years Used Date Smoking Tobacco: Never Smokeless Tobacco: Never Alcohol Use Standard Drinks/Week Comments Yes 7 (1 standard drink = 0.6 oz pur e alcohol) glass of wine nightly Utilities Answer Date Recorded In the past 12 months has [employer], gas, oil, or water company threatened [...] any time in the past 12 m [facility], were you homeless or living in a fdc (including now)? No 10/21/2024 Yearly Questionnaire Answer [...] on file documented as of this encounter Visit Diagnoses Not on filedocumented in this encounter Care Teams Cold Food Packer Relationship Specialty Start Date End Date Mona Hi DO [address] [place] [address] PCP - General Family Medicine 10/22/24 documented as of this encounter
--- OUTSIDE RECORDS SUMMARY | 2025-02-22 12:49 | XMS_ITS | Clinical Summary ---
Author Organization [facility] Address [facility] [place] [address] Care Team Providers Care Sand Conditioner Machine Name Role Phone Mona Hi DO Primary Care Provider +1 [phone] Source Comments This information has been disclosed [...] therelease of HIV test results or diagnoses. [id number] Allergies No known active allergies Medications [...] Encounters Date Type Department Care Team Description 02/10/2025 Telephone [facility] NSICU [address] [place] [address] Mulu Hancock RN 01/31/2025 3:23 PM EDT - 01/31/2025 11:59 PM EDT Hospital Encounter [facility] Cardiac Stress Lab at [facility] [address] [place] [address] Hubert Lux MD Discharge Disposition: Home or Self Care WITHOUT Home Care Services 01/31/2025 Orders Only [facility] Cardiac Stress Lab at [facility] [address] [place] [address] Hubert Lux MD 01/02/2025 6:08 PM EDT - 01/02/2025 11:59 PM EDT Hospital Encounter [facility] Cardiac Stress Lab at [facility] [address] [place] [address] Hubert Lux MD Discharge Disposition: Home or Self Care WITHOUT Home Care Services 12/31/2024 Orders Only [facility] Cardiac Stress Lab at [facility] [address] [place] [address] Hubert Lux MD 11/30/2024 6:15 PM EDT - 11/30/2024 11:59 PM EDT Hospital Encounter [facility] Cardiac Stress Lab at [facility] [address] [place] [address] Jeremie Pope, DO Discharge Disposition: Home or Self Care WITHOUT Home Care Services 11/30/2024 Orders Only [facility] Cardiac Stress Lab at [facility] [address] [place] [address] Jeremie Pope, 11/29/2024 Telephone [facility] Neurology at [facility] [address] [place] [address] Brunilda Cross, DO 11/25/2024 2:00 PM EDT Office Visit [facility] Neurology at [facility] [address] [place] [phone] Brunilda Cross DO Cerebrovascular accident (CVA) due to other mechanism (CMS-HCC) (Primary Dx) 11/24/2024 Telephone [facility] Neurology at [facility] [place] [address] [place] [phone] Brunilda Cross DO from Last 3 Months Family History Medical History Relation Comments Cancer Father Relation Status Comments Father Social History Tobacco Use Types Packs/Day Years Used Date Smoking Tobacco: Never Smokeless Tobacco: Never Tobacco Cessation:Counseling Given: Not Answered Alcohol Use Standard Drinks/Week Comments Yes 7 (1 standard drink = 0.6 oz pur e alcohol) glass of wine nightly PushToTest Answer Date Recorded In the past 12 months has th e [employer], gas, oil, or water company threatened to [...] were you homeless or living in a half-way (including now)? No 10/21/2024 Yearly Questionnaire Answer [...] (MyChart) Completed Medical Devices Implanted Type Area Mainspring Torque Tester Device Identifier Shelf Expiration Date Model / Serial / Lot Recorder Crd Linq Ii Ins Implanted:Qty: 1 on 10/28/2024 by Hubert Lux MD at [facility] Implantable Loop Recorder [employer] 02/01/2026 [id number] / [id number] / Device Closure Angio-Seal Vip Bondek-Plus Polyglyd L70 Cm Od8 Fr Odsec.038 In Vascular Hemostatic Bioabsorbable Insertion Sheath Guidewire Sterile Latex Free Disposable - [id number] Implanted:Qty: 1 on 10/21/2024 by Hilario Sainz MD at [facility] [employer] 12/16/2024 [id number] / / [id number] Procedures Procedure Name Priority Date/Time Associated Diagnosis [...] period is included. 01/31/2025 1:56 PM EDT Hubert Lux MD CV CARDIAC SERVICES ORDERABL ES Final Result RADNET * ED HCV Ab Reflex To HCV Quant (10/21/2024 12:22 PM EST) HCV Ab Nonreactive Nonreactive 10/21/2024 2:39 PM EST [facility] Comment:Health Department no tified in accordance with reportable infectious disease guidelines. HCVAB Number 0.03 0.00 - 0.79 S/CO 10/21/2024 2:39 PM EST [facility] Serum 10/21/2024 12:2 2 PM EST 10/21/2024 1:14 PM EST Long Flores MD LAB BLOOD ORDERABLES Final Resul t [facility] [address] from Last 3 Months or Most Recently Relevant to Health Maintenance Insurance Critical access hospital[address] MEDICAID [facility] care Address: [facility] [id number] [place] [address] Advance Directives For more information, please contact: [phone] Documents on File Type Date Recorded Patient Medical Art Therapist Expl anation Durable Power of Manager [employer] - scan 10/31/2024 * Full Code (Latest Code Status on File) Date Activated Date Inactivated Comments 10/21/2024 3:01 PM 10/29/2024 4:08 PM Care Teams Sand Conditioner Machine Relationship Specialty Start Date End Date Mona Hi DO [address] [place], [place] [id number] PCP - General Family Medicine 10/22/24
[2025-02-22 13:51] LABS: Hemoglobin A1C 6.2 % (4.0-6.0)
[2025-02-22 14:11] LABS: Erythrocyte Sedimentation Rate 6 mm/hr (0-30)
[2025-02-23 10:13] LABS: Anti-Centromere B Antibodies <0.2 AI (0.0-0.9); Anti-DNA (DS) Ab Qn 1 IU/mL (0-9); Anti-Jo-1 <0.2 AI (0.0-0.9); Anti-Smith Antibody <0.2 AI (0.0-0.9); Antichromatin Antibodies <0.2 AI (0.0-0.9); Antiscleroderma-70 Antibodies <0.2 AI (0.0-0.9); RNP Antibodies <0.2 AI (0.0-0.9); Sjogren's Anti-SS-A <0.2 AI (0.0-0.9); Sjogren's Anti-SS-B <0.2 AI (0.0-0.9)
[2025-02-23 16:17] LABS: Beta-2 Glycoprotein I Ab, IgA <9 (0-25); Beta-2 Glycoprotein I Ab, IgG <9 (0-20); Beta-2 Glycoprotein I Ab, IgM <9 (0-32)
[2025-02-25 02:09] LABS: Anti-CCP Abs,IgG and IgA (RDL) < 20 Units (<20)
[2025-02-25 15:55] LABS: Miscellaneous Test SCANNED IMAGE
[2025-02-26 01:12] LABS: Rheumatoid Factor IGA < 7 U (<7); Rheumatoid Factor IGM < 7 U (<7)
== END 2025-02-22 23:59 | disposition home or self-care (01) ==
LOC: LAB 12:47
PROVIDERS: Visit Provider Internal Medicine
DX: I08.0 Rheumatic disorders of both mitral and aortic valves (principal); I63.9 Cerebral infarction, unspecified; G30.9 Alzheimer's disease, unspecified; F02.80 Dementia in other diseases classified elsewhere, unspecified severity, without behavioral disturbance, psychotic disturbance, mood disturbance, and anxiety; E78.5 Hyperlipidemia, unspecified; R94.31 Abnormal electrocardiogram [ECG] [EKG]; Z95.818 Presence of other cardiac implants and grafts
CPT/HCPCS: 36415; 83036; 85651; 86146; 86200; 86225; 86235; 86431; 93306

== ENCOUNTER 2025-02-25 09:00 | Outpatient (RCR) | payer OTHER, SELFPAY ==
--- NOTE | 2025-02-16 12:34 | HMH.PTOPEV ---
PT Outpatient Evaluation Rehab PT Outpatient Evaluation Start: 02/16/25 11:04 Freq: Status: Active Protocol: Document 02/16/25 11:05 KACISERCHANI (Rec: 02/16/25 12:34 PDESEROUX [id number]) E-signed By Wenceslao Cespedes, PT Outpatient Therapy Subjective History Subjective History Pt.'s cousin and Aunt(via cell phone) provided pt.'s medical history and list of current medications d/t pt. 's poor historian status secondary to medical history. Pt. is a 54 year old female who presents to [facility] Outpatient Physical Therapy Services in [place] for the outpatient initial evaluation this date(02/16/25) w / c/o chronic and constant LUE shldr./wrist/hand P!, stiffness, and weakness since October 2024 after the pt. suffered a stroke. Pt.'s cousin stated that pt. was found laying on her L side in her apartment in October by EMS, was unable to note how long pt. had been laying on the floor. Pt. was taken to [facility] where a stroke was ruled in. Pt.'s cousin and Aunt vocalized this was around the same time the pt. started to being of LUE shldr./wrist/hand P!. Pt. c/o P ! w/ donning/doffing shirt and elevating LUE overhead and in abducted position. Pt.'s Aunt stated L-sided residual deficits secondary to the stroke, however, vocalized pt. making improvements in the residual deficits. Pt. denies diagnostic imaging of the LUE shldr. Pt. reports having an injection in the LUE shldr . that did not provide pt. w/ any symptom relief. Pt. does not have a return date to referring MD at this time, vocalize trialing Physical Therapy for a couple weeks for any symptom relief. Current medications include Aspirin, Zoloft, Atorvastatin. PMH includes Dementia, Alzheimer's, and Stroke. New diagnosis of No cancer in past 12 months? Chief Complaint Pain,Stiff,Weakness,Decreased Making Line Worker Strength Symptom Type Ache,Sharp,Dull,Stabbing Symptoms Relieved By Rest/Positioning,Ice Symptoms Aggravated Physical Activity,Twisting,Lifting By Prior Functional None Limitations Current Functional Reaching,Lifting,Housework,Dressing,Recreation Activity Limitations Symptom Description Constant but Variable,Activity Dependent Level of pain today 3 (0-10) Pain scale - at its 2 best (0-10) Pain scale - at its 6 worst (0-10) Shoulder/Elbow Eval Shoulder Objective Measurements Palpation Tenderness tenderness shoulder left exam standard tenderness over the left bicipital tendon shoulder exam standard tenderness over the left SA bursa shoulder exam standard Shoulder Palpation Tenderness Findings Shoulder Palpation grade 4 +TTP Overall Comment Posture Shoulder Posture (L) Rounded,(L) Forward,(L) Elevated Sitting Position Shoulder Posture (L) Rounded,(L) Forward,(L) Elevated Standing Position Scapula Posture (L) Protracted,(L) Elevated,(L) Winged Sitting Position Scapular Posture (L) Protracted,(L) Elevated,(L) Winged Standing Position Flexibilty Deficits Latissmus Dorsi (L) Severe Tightness Muscle Length Pectoralis Minor (L) Severe Tightness Muscle Length Pectoralis Major (L) Severe Tightness Muscle Length Shoulder External (L) Severe Tightness Rotators Muscle Length Shoulder Internal (L) Severe Tightness Rotators Muscle Length Supraspinatus Muscle (L) Severe Tightness Length Teres Major Muscle (L) Severe Tightness Length Upper Trapezius (L) Severe Tightness Muscle Length Levaetor Scapulae (L) Severe Tightness Muscle Length Shoulder ROM Left Shoulder ROM Soft Tissue Tightness,Muscle Weakness,Pain Limitations Shoulder Abduction 87 Active Range of Motion (degrees) Shoulder Abduction 94 Passive Range of Motion (degrees) Shoulder Flexion 78 Active Range of Motion (degrees) Query Text: Shoulder Flexion 87 Passive Range of Motion (degrees) Shoulder External 21 Rotation Active Range of Motion ( degrees) Shoulder External 43 Rotation Passive Range of Motion ( degrees) Shoulder Internal 27 Rotation Active Range of Motion ( degrees) Shoulder Internal 39 Rotation Passive Range of Motion ( degrees) Shoulder Extension 68 Active Range of Motion (degrees) Shoulder Extension 71 Passive Range of Motion (degrees) pain with active ROM left shoulder exam standard pain with passive left ROM shoulder exam standard decreased ROM left shoulder exam standard Shoulder MMT Upper Trapezius/ 4- Good- Levator Scapulae Shoulder Abduction 3+ Fair+ Strength Grade Shoulder Extension 4- Good- Strength Grade Shoulder Flexion 3+ Fair+ Strength Grade Shoulder External 4- Good- Rotation Strength Grade Shoulder Internal 4- Good- Rotation Strength Grade Shoulder Strength Sitting Patient Testing Position Shoulder Muscle Tone Shoulder Flexor Severe Hypertonicity Muscle Tone Description Shoulder Extensors Severe Hypertonicity Muscle Tone Description Shoulder Lateral Severe Hypertonicity Rotator Muscle Tone Description Shoulder Special Tests impingement sign left present shoulder exam standard Shoulder Empty Can ( Positive Left Supraspinatus) Test Shoulder Garrison- Positive Left Madhav Impingement Test Elbow Objective Measurements Outpatient Therapy Assessment Impairments Problems/ Palpation Tenderness,Impaired Range of Motion,Impaired Impairmments Strength,Impaired Lifting,Impaired Dressing,Impaired Shower/Bathing,Impaired Household Care,Impaired Desk/ Computer Activities,Subjective C/O Pain,Impaired Self Care/Self Management Prognosis Rehab Potential Good Clinical Impression Consistent with Yes Diagnosis Consistent with adhesive capsulitis LUE shldr. Short Term Goals Number of Weeks 2 Decreased Palpation Yes: grade 2 +TTP Tenderness Improve Ability to Yes: Pt. will don/doff shirt w/o LUE shldr. P! Dress Self Decrease Subjective Yes: worse:5/10 C/O Pain Patient to be Ind w/ Yes HEP Fpc Goals Number of Weeks 4-6 Decreased Palpation Yes: grade 1 +TTP Tenderness Increase Range of Yes: LUE shldr. A/PROM symmetrical RUE in all planes of Motion motion Increase Strength Yes: LUE shldr. MMT scores symmetrical to RUE shldr. MMT scores grossly Improve Ability to Yes: Pt. will be able to wash LUE axillae region w/o Shower/Bathe Self difficulty Improve Ability For Yes: Pt. will be able to cook a meal w/o difficulty Household Care Improve Tolerance to Yes: Pt. will be able to write w/ LUE w/o LUE shldr./ Desk/Computer wrist P! Activities Improve Quick Dash Yes Score Decrease Subjective Yes: worse:2/10 C/O Pain Patient to be Ind w/ Yes Advanced HEP Outpatient Therapy Plan of Care Treatment Plan May Include Therapeutic Exercise Yes Including Home Exercise Program Manual Therapy Yes Techniques Neuromuscular Re- Yes education Therapeutic Yes Activities to Return to Previous Functional/Work Level ADL/Self Care Yes Education Thermal Modalities Yes Electrical Yes: precaution:PMH Stimulation Ultrasound/ Yes Phonophoresis Iontophoresis Yes Vasopneumatic Yes Compression Pump Massage Yes Eval/Re-Eval Yes Frequency Times per week 2 Duration Number of Weeks 4-6 Addendums This patient is a No candidate for social or vocational rehab ? Patient/Guardian Yes verbally acknowledges understanding of treatment program and consents to further treatment? Patient/Guardian Yes verbally acknowledges understanding of diagnosis, prognosis and goals for treatment? Eval Complexity PT Charges 01063 - Moderate Complexity PHYSICIAN CERTIFICATION: I certify the specified therapy services for Sadia Tillman are required, authorized, and reviewed every 30 days.
== END 2025-02-25 23:59 | disposition home or self-care (01) ==
LOC: PT.CARL 09:00
PROVIDERS: Visit Provider Orthopaedic Surgery
DX: M75.02 Adhesive capsulitis of left shoulder (principal)
CPT/HCPCS: 97110; 97140; 97162; 97530

== ENCOUNTER 2025-03-02 11:17 | Outpatient (CLI) | payer OTHER, SELFPAY ==
--- OUTSIDE RECORDS SUMMARY | 2025-01-02 18:08 | XMS_ITS | Encounter Summary ---
Author Organization [facility] Address [facility] [place] [address] Care Team Providers Care Cleaning Professional Name Role Phone Mona Hi DO Primary Care Provider [phone] Source Comments This information has been disclosed to you from confidential records protectfrom disclosure by state law. You shall make no further disclosure of thisinformation without the specific, written, and informed release of theindividual to whom it pertains, or as otherwise permitted by law. A generalauthorization for the release of medical or other information is not sufficientfor the purposes of the release of HIV test results or diagnoses. [id number] Reason for Referral * Imaging/Cardiovascular Scan (Routine) - Pending Review Specialty Diagnoses / Procedures Referred By Contac t Referred To Contact Cardiology Procedures Device Check - Remote Hubert Lux MD [address] [place] [address] Phone: tel: fax: Referral ID Status Reason Start Date Expiration Date V isits Requested Visits Authorized [id number] Pending Review 01/02/2025 07/01/2025 1 1 Reason for Visit * Imaging/Cardiovascular Scan (Routine) - Pending Review Specialty Diagnoses / Procedures Referred By Inderjit t Referred To Contact Cardiology Procedures Device Check - Remote Hubert Lux MD [address] [place] [address] Phone: tel: fax: Referral ID Status Reason Start Date Expiration Date V isits Requested Visits Authorized [id number] Pending Review 01/02/2025 07/01/2025 1 1 Encounter Details Date Type Department Care Team (Latest Contact Info) Description 01/02/2025 6:08 PM EDT - 01/02/2025 11:59 PM EDT Hospital Encounter [facility] Cardiac Stress Lab at [facility] [address] [place] [address] Hubert Lux MD [address] [place] [address] Discharge Disposition: Home or Self Care WITHOUT Home Care Services Social History Tobacco Use Types Packs/Day Years Used Date Smoking Tobacco: Never Smokeless Tobacco: Never Alcohol Use Standard Drinks/Week Comments Yes 7 (1 standard drink = 0.6 oz pur e alcohol) glass of wine [employer] Answer Date Recorded In the past 12 months has [employer], gas, oil, or water [employer] threatened to shut off services in your home? No 10/21/2024 AUDIT-C Answer Date Recorded Q1: How often do you have a drink containing alcohol? 4 or more times a week 10/21/2024 Q2: How many drinks containi ng alcohol do you have on a typical day when you are drinking? 1 or 2 Q3: How often do you have si x or more drinks on one occasion? Monthly 10/21/2024 PHQ-2 Answer Date Recorded PHQ-2 Total Score 0 01/29/2024 Hunger Vital Sign Answer Date Recorded Within the past 12 months, y ou worried that your food would run out before you got the money to buy more. Never true 10/21/19 25 Within the past 12 months, t he food you bought just didn't last and you didn't have money to get more. Never true 10/21/2024 PRAPARE - Transportation Answer Date Re corded In the past 12 months, has l ack of transportation kept you from medical appointments or from getting medications? No 10/03 In the past 12 months, has l ack of transportation kept you from meetings, work, or from getting things needed for daily living? No 10/21/2024 Housing Stability Vital Sign Answer Sharad e Recorded In the last 12 months, was t here a time when you were not able to pay the mortgage or rent on time? No 10/21/2024 In the past 12 months, how m any times have you moved where you were living? 0 10/21/2024 At any time in the past 12 m [facility], were you homeless or living in a longterm (including now)? No 10/21/2024 Yearly Questionnaire Answer Date Record ed Do you need any assistance w ith obtaining housing, meals, medication, transportation or medical equipment? No 01/28 Assistance needed for: Not on file 4 Yearly Questionnaire Answer Date Record ed Do you need any assistance w ith obtaining housing, meals, medication, transportation or medical equipment? No 01/28 Assistance needed for: Not on file 4 Yearly Questionnaire Answer Date Record ed Do you need any assistance w ith obtaining housing, meals, medication, transportation or medical equipment? No 01/28 Assistance needed for: Not on file 4 Comments No Sex and Gender Information Value Date Recorded Sex Assigned at Not on file Legal Sex Female 1:29 PM EDT Gender Identity Not on file Sexual Orientation Not on file documented as of this encounter Medications at Time of Discharge apixaban (ELIQUIS) 2.5 mg Tab Take 1 tablet (2.5 mg total) by mouth. aspirin 81 MG chewable tablet Chew 1 tablet (81 mg total) by mouth daily with breakfast. 10/28/2024 atorvastatin (LIPITOR) 40 MG tablet Take 1 tablet (40 mg total) by mouth at bedtime. 10/27/2024 donepeziL (ARICEPT) 10 MG tablet Take 1 tablet (10 mg total) by mouth at bedtime. documented as of this encounter Plan of Treatment Not on file documented as of this encounter Procedures Procedure Name Priority Date/Time Associated Diagnosis Comments DEVICE CHECK - REMOTE Routine 01/02/2025 6:08 PM EDT documented in this encounter Results * Device Check - Remote (01/02/2025 6:08 PM EDT) 12/31/2024 1:51 PM EDT us Hubert Lux MD CV CARDIAC SERVICES ORDERABL ES Final Result RADNET documented in this encounter Visit Diagnoses Not on filedocumented in this encounter Care Teams Cleaning Professional Relationship Specialty Start Date End Date Mona Hi DO [address] [facility] [address] [place], [place] [id number] PCP - General Family Medicine 10/22/24 documented as of this encounter
--- OUTSIDE RECORDS SUMMARY | 2025-01-31 15:23 | XMS_ITS | Encounter Summary ---
Author Organization [facility] Address [facility] [place] [address] Care Team Providers Care Sales Administration Specialist Name Role Phone Mnoa Hi DO Primary Care Provider [phone] Source Comments This information has been disclosed [...] release of HIV test results or diagnoses. [id number] Reason for Referral * Imaging/Cardiovascular Scan (Routine) - Pending Review Specialty Diagnoses / Procedures Referred By Contac t Referred To Contact Cardiology Procedures Device Check - Remote Hubert Lux MD [address] [address] Phone: tel: fax: Referral ID Status Reason Start Date Expiration Date V isits Requested Visits Authorized [id number] Pending Review 01/31/2025 07/30/2025 1 1 Reason for Visit * Imaging/Cardiovascular Scan (Routine) - Pending Review Specialty Diagnoses / Procedures Referred By Inderjit tan Referred To Contact Cardiology Procedures Device Check - Remote Hubert Lux MD [address] [place] [address] Phone: tel: fax: Referral ID Status Reason Start Date Expiration Date V isits Requested Visits Authorized [id number] Pending Review 01/31/2025 07/30/2025 1 1 Encounter Details Date Type Department Care Team (Latest Contact Info) Description 01/31/2025 3:23 PM EDT - 01/31/2025 11:59 PM EDT Hospital Encounter [facility] Cardiac Stress Lab at [facility] [address] [facility] [address] [place] [address] Hubert Lux MD [address] [place] [address] Discharge Disposition: Home or Self Care WITHOUT Home Care Services Social History Tobacco Use Types Packs/Day Years Used Date Smoking Tobacco: Never Smokeless Tobacco: Never Alcohol Use Standard Drinks/Week Comments Yes 7 (1 standard drink = 0.6 oz pur e alcohol) glass of wine [employer] Answer Date Recorded In the past 12 months has [employer], gas, oil, or water [employer] threatened to shut off services in your [...] any time in the past 12 m [facility], were you homeless or living in a senior living (including now)? No 10/21/2024 Yearly Questionnaire Answer [...] on filedocumented in this encounter Care Teams Sales Administration Specialist Relationship Specialty Start Date End Date Mona Hi DO [address] [facility] [place] [address] PCP - General Family Medicine 10/22/24 documented as of this encounter
--- NOTE | 2025-03-02 | CA_ITS ---
APPROVED REPORT Exam: Pharmacologic Technologist: Beata Adame Ht: 5 ft 0 in Wt: 110 lbs BSA: 1.45 m2 HR: 57 bpm BP: 165/95 mmHg Medical History Medications: Aspirin, Atorvastatin, Donepezil, Sertraline Stress Test Details Test: Lexiscan Reason for pharmacologic stress test: physical limitation. HR Resting HR: 57 bpm Max Heart Rate (APMHR): 164.264763 bpm Max HR Achieved: 105 bpm Target HR (85% APMHR): 139.945204 bpm % of APMHR: 64.02 Recovery HR: 84 bpm BP Resting BP: 165.0/95.0 mmHg Max BP: 165.0/95.0 mmHg Recovery BP: 138.0/89.0 mmHg ECG Stress ECG Conclusion Symptoms: None. Arrhythmias/Ectopy: None. ST-T Changes: EKG nondiagnostic-Sofy. Electronically signed by : Lela Jeffries MD 03/03/2025 12:37:07
--- OUTSIDE RECORDS SUMMARY | 2025-03-02 11:21 | XMS_ITS | Encounter Summary ---
Author Organization [facility] Address [facility] [place] [address] Care Team Providers Care Traffic Representative Name Role Phone Mona Hi DO Primary Care Provider [phone] Source Comments This information has been disclosed [...] release of HIV test results or diagnoses. [id number] Reason for Referral * Imaging/Cardiovascular Scan (Routine) - Pending Review Specialty Diagnoses / Procedures Referred By Inderjit tan Referred To Contact Cardiology Procedures Device Check - Remote Hubert Lux MD [address] [place] [address] Phone: tel: fax: Referral ID Status Reason Start Date Expiration Date V isits Requested Visits Authorized [id number] Pending Review 01/02/2025 07/01/2025 1 1 Encounter Details Date Type Department Care Team (Late st Contact Info) Description 12/31/2024 Orders Only [facility] Cardiac Stress Lab at [facility] [address] [facility] [address] [place] [phone] Hubert Lux MD [address] [place] [address] Social History Tobacco Use Types Packs/Day Years Used Date Smoking Tobacco: Never Smokeless Tobacco: Never Alcohol Use Standard Drinks/Week Comments Yes 7 (1 standard drink = 0.6 oz pur e alcohol) glass of wine nightly Utilities Answer Date Recorded In the past 12 months has e [employer], gas, oil, or water company threatened to [...] any time in the past 12 m [facility], were you homeless or living in a custodial (including now)? No 10/21/2024 Yearly Questionnaire Answer [...] ORDERABL ES Final Result Performing Organization Address City/State/[facility] Co de Phone Number RADNET documented in this encounter Visit Diagnoses Not on filedocumented in this encounter Care Teams Traffic Representative Relationship Specialty Start Date End Date Mona Hi DO [address] [facility] [place] [address] PCP - General Family Medicine 10/22/24 documented as of this encounter
--- OUTSIDE RECORDS SUMMARY | 2025-03-02 11:21 | XMS_ITS | Encounter Summary ---
Author Organization [facility] Address [address] [place] [address] Care Team Providers Care Chief Service Dispatcher Name Role Phone Mona Hi DO Primary Care Provider [phone] Source Comments This information has been disclosed [...] release of HIV test results or diagnoses. [id number] Health Encounter Details Date Type Department Care Team (Late st Contact Info) Description 02/10/2025 Telephone [facility] [address] [place] [address] Mulu Hancock, RN Social History Tobacco Use Types Packs/Day Years Used Date Smoking Tobacco: Never Smokeless Tobacco: Never Alcohol Use Standard Drinks/Week Comments Yes 7 (1 standard drink = 0.6 oz pur e alcohol) glass of wine nightly Utilities Answer Date Recorded In the past 12 months has [employer], gas, oil, or water company threatened [...] any time in the past 12 m [facility], were you homeless or living in a retirement (including now)? No 10/21/2024 Yearly Questionnaire Answer [...] on filedocumented in this encounter Care Teams Chief Service Dispatcher Relationship Specialty Start Date End Date Mona Hi DO [address] [place] [address] PCP - General Family Medicine 10/22/24 documented as of this encounter
--- OUTSIDE RECORDS SUMMARY | 2025-03-02 11:21 | XMS_ITS | Encounter Summary ---
Author Organization [facility] Address [facility] [place] [address] Care Team Providers Care Outsole Cutter Machine Name Role Phone Mona Hi DO Primary Care Provider [phone] Source Comments This information has been disclosed [...] release of HIV test results or diagnoses. [id number] Reason for Referral * Imaging/Cardiovascular Scan (Routine) - Pending Review Specialty Diagnoses / Procedures Referred By Inderjit tan Referred To Contact Cardiology Procedures Device Check - Remote Jeremie Pope DO [address] [place] [address] Phone: tel: fax: Referral ID Status Reason Start Date Expiration Date V isits Requested Visits Authorized [id number] Pending Review 11/30/2024 05/29/2025 1 1 Encounter Details Date Type Department Care Team (Late st Contact Info) Description 11/30/2024 Orders Only [facility] Cardiac Stress Lab at [facility] Office [address] [place] [address] Jeremie Pope DO [address] [place] [address] Social History Tobacco Use Types Packs/Day Years Used Date Smoking Tobacco: Never Smokeless Tobacco: Never Alcohol Use Standard Drinks/Week Comments Yes 7 (1 standard drink = 0.6 oz pur e alcohol) glass of wine nightly Utilities Answer Date Recorded In the past 12 months has e [employer], gas, oil, or water company threatened to [...] any time in the past 12 m [facility], were you homeless or living [...] on filedocumented in this encounter Care Teams Outsole Cutter Machine Relationship Specialty Start Date End Date Mona Hi DO [address] [facility] [address] [place], [place] [phone] PCP - General Family Medicine 10/22/24 documented as of this encounter
--- OUTSIDE RECORDS SUMMARY | 2025-03-02 11:21 | XMS_ITS | Clinical Summary ---
Author Organization [facility] Address [address] [place] [address] Phone Care Team Providers Care Vocational Coordinator Name Role Phone Unavailable Primary Care Provider [...] drink = 0.6 oz pur e alcohol) [facility] Utilities Answer Date Recorded In the past [...] often do you attend chur ch or restoration services? 1 to 4 times per year 10/31/2024 Do you belong to any clubs o r organizations such as buddhism groups, unions, fraternal or athletic groups, or [...] and heating? Not hard at all 10/31/2024 [facility] - Occupational Stress [...] any time in the past 12 m [facility], were you homeless or living in a fci (including now)? No 10/31/2024 Domestic Abuse Assessment [...] on file Medical Devices Implanted Type Area Outreach Consultant Device Identifier Shelf Expiration Date Model / [...]
--- OUTSIDE RECORDS SUMMARY | 2025-03-02 11:21 | XMS_ITS | Clinical Summary ---
Author Organization [facility] Address [facility] [place] [address] Care Team Providers Care In Home Baby Sitter Name Role Phone Mona Hi DO Primary Care Provider [phone] Source Comments This information has been disclosed [...] therelease of HIV test results or diagnoses. [id number] Allergies No known active allergies Medications [...] Type Department Care Team Description 02/10/2025 Telephone [facility] NSICU [address] [place] [address] Mulu Hancock RN 01/31/2025 3:23 PM EDT - 01/31/2025 11:59 PM EDT Hospital Encounter [facility] Cardiac Stress Lab at [facility] [address] [place] [address] Hubert Lux MD Discharge Disposition: Home or Self Care WITHOUT Home Care Services 01/31/2025 Orders Only [facility] Cardiac Stress Lab at [facility] [address] [place] [address] Hubert Lux MD 01/02/2025 6:08 PM EDT - 01/02/2025 11:59 PM EDT Hospital Encounter [facility] Cardiac Stress Lab at [facility] [address] [place] [address] Hubert Lux MD Discharge Disposition: Home or Self Care WITHOUT Home Care Services 12/31/2024 Orders Only [facility] Cardiac Stress Lab at [facility] [address] [place] [address] Hubert Lux MD from Last 3 Months Family History Medical History Relation Comments Cancer Father Relation Status Comments Father Social History Tobacco Use Types Packs/Day Years Used Date Smoking Tobacco: Never Smokeless Tobacco: Never Tobacco Cessation:Counseling Given: Not Answered Alcohol Use Standard Drinks/Week Comments Yes 7 (1 standard drink = 0.6 oz pur e alcohol) glass of wine nightly [employer] Answer Date Recorded In the past 12 months has [employer], gas, oil, or water [employer] threatened to shut off services in your [...] time in the past [address] [facility], were you homeless or living in a jail (including now)? No 10/21/2024 Yearly Questionnaire Answer [...] (MyChart) Completed Medical Devices Implanted Type Area Physical Design Engineer Device Identifier Shelf Expiration Date Model / Serial / Lot Recorder Crd Linq Ii Ins Implanted:Qty: 1 on 10/28/2024 by Hubert Lux MD at [facility] Implantable Loop Recorder [employer] 02/01/2026 [id number] / [id number] / Device Closure Angio-Seal Vip Bondek-Plus Polyglyd L70 Cm Od8 Fr Odsec.038 In Vascular Hemostatic Bioabsorbable Insertion Sheath Guidewire Sterile Latex Free Disposable - [id number] Implanted:Qty: 1 on 10/21/2024 by Hilario Sainz MD at [facility] [employer] 12/16/2024 [id number] / / [id number] Procedures Procedure Name Priority Date/Time Associated Diagnosis Comments DEVICE CHECK - REMOTE Routine 01/31/2025 3:23 PM EDT DEVICE CHECK - REMOTE Routine 01/02/2025 6:08 PM EDT ED HCV AB REFLEX TO HCV QUANT Routine 10/21/2024 12:22 PM EST from Last 3 Months or Most Recently Relevant to Health Maintenance Results * Device Check - Remote (01/31/2025 3:23 PM EDT) Only the most recent of2 resultswithin the time period is included. 01/31/2025 1:56 PM EDT us Hubert Lux MD CV CARDIAC SERVICES ORDERABL ES Final Result RADNET * ED HCV Ab Reflex To HCV Quant (10/21/2024 12:22 PM EST) HCV Ab Nonreactive Nonreactive 10/21/2024 2:39 PM EST [facility] Comment:Health Department no tified in accordance with reportable infectious disease guidelines. HCVAB Number 0.03 0.00 - 0.79 S/CO 10/21/2024 2:39 PM EST [facility] Serum 10/21/2024 12:2 2 PM EST 10/21/2024 1:14 PM EST us Long Flores MD LAB BLOOD ORDERABLES Final Resul t [facility] [address] from Last 3 Months or Most Recently Relevant to Health Maintenance Insurance Advance Directives For more information, please contact: [phone] Documents on File Type Date Recorded Patient Kerfer Machine Operator Expl anation Durable Power of Dean Of Women - scan 10/31/2024 * Full Code (Latest Code Status on File) Date Activated Date Inactivated Comments 10/21/2024 3:01 PM 10/29/2024 4:08 PM Care Teams In Home Baby Sitter Relationship Specialty Start Date End Date Mona Hi DO [address] [place] [address] PCP - General Family Medicine 10/22/24
--- OUTSIDE RECORDS SUMMARY | 2025-03-02 11:21 | XMS_ITS | Encounter Summary ---
Author Organization [facility] Address [facility] [place] [address] Care Team Providers Care Advanced Practice Nurse Psychotherapist Name Role Phone Mona Hi DO Primary Care Provider [phone] Source Comments This information has been disclosed [...] release of HIV test results or diagnoses. [id number] Reason for Referral * Imaging/Cardiovascular Scan (Routine) - Pending Review Specialty Diagnoses / Procedures Referred By Inderjit tan Referred To Contact Cardiology Procedures Device Check - Remote Hubert Lux MD [address] [address] Phone: tel: fax: Referral ID Status Reason Start Date Expiration Date V isits Requested Visits Authorized [id number] Pending Review 01/31/2025 07/30/2025 1 1 Encounter Details Date Type Department Care Team (Late st Contact Info) Description 01/31/2025 Orders Only [facility] Cardiac Stress Lab at [facility] Office [address] [facility] [address] [place] [address] Hubert Lux MD [address] [place] [address] Social History Tobacco Use Types Packs/Day Years Used Date Smoking Tobacco: Never Smokeless Tobacco: Never Alcohol Use Standard Drinks/Week Comments Yes 7 (1 standard drink = 0.6 oz pur e alcohol) glass of wine nightly Utilities Answer Date Recorded In the past 12 months has e [employer], gas, oil, or water company threatened to [...] time in the past [address] [facility], were you homeless or living [...] ORDERABL ES Final Result Performing Organization Address City/State/[facility] Co de Phone Number RADNET documented in this encounter Visit Diagnoses Not on filedocumented in this encounter Care Teams Advanced Practice Nurse Psychotherapist Relationship Specialty Start Date End Date Mona Hi DO [address] [facility] [place] [address] PCP - General Family Medicine 10/22/24 documented as of this encounter
--- NOTE | 2025-03-02 11:30 | NM_ITS ---
APPROVED REPORT Exam: Nuclear Stress Test Indication: abn ecg Patient Location: Outpatient Stress Tech: Beata Atkinson [place] Tech:Melody Jackson BAKARIChristian, RT (R)(N) Ht: 5 ft 0 in Wt: 140 lbs Bra Size: c HR: 55 bpm BP: 165/95 mmHg BSA: 1.60 m2 TID: 0.94 History: abn ecg Procedure: Patient received 0.4 mg of intravenous Lexiscan, resting heart rate 55 bpm, resting blood pressure 165/95 mmHg, with Lexiscan maximum heart rate achieved was 105 bpm which is 85 % of the maximum predicted heart rate and blood pressure was 137/88 mmHg. With Lexiscan, patient denied any complaint of chest pain. Cardiac Stress and Resting SPECT Images: Cardiac Stress and Resting SPECT images were obtained using technetium 99m Myoview 28.6 mCi stress and 10.58 mCi at rest. Resting stress imaging in supine and prone positions demonstrate no evidence of fixed or reversible perfusion defects. Gated imaging demonstrates normal global and regional LV systolic function. LVEF is calculated at 63%. Conclusion: No evidence of fixed or reversible perfusion defects. Gated imaging demonstrates normal global and regional LV systolic function. LVEF is calculated at 63%. Electronically signed by : Lela Jeffries MD 03/03/2025 12:33:36
[2025-03-02] MEDS: SODIUM CHLORIDE 0.9% 10ML SYR (RAD ONLY) 10 ML IV ×2 (14:10)
[2025-03-02] MEDS: ISOTOPE MYOVIEW (PER STUDY) 1 DOSE IV (14:10)
== END 2025-03-02 23:59 | disposition home or self-care (01) ==
LOC: RAD 11:20
PROVIDERS: PCP Nurse Practitioner Family; Visit Provider Internal Medicine
DX: G30.9 Alzheimer's disease, unspecified (principal); F02.80 Dementia in other diseases classified elsewhere, unspecified severity, without behavioral disturbance, psychotic disturbance, mood disturbance, and anxiety; R94.31 Abnormal electrocardiogram [ECG] [EKG]
CPT/HCPCS: 78452; 93016; 93017; 93018; A9502; J2785

== ENCOUNTER → 2025-03-23 11:00 | Outpatient (RCR) | payer OTHER, SELFPAY | LOC: PT.CARL 03-01 10:53 | PROVIDERS: Visit Provider Orthopaedic Surgery | DX: M75.02 Adhesive capsulitis of left shoulder (principal) | CPT/HCPCS: 97110; 97530 ==

== ENCOUNTER 2025-06-14 14:02 | Outpatient (CLI) | payer OTHER, SELFPAY ==
--- OUTSIDE RECORDS SUMMARY | 2025-06-14 14:07 | XMS_ITS | Encounter Summary ---
Author Organization [facility] Address [facility] [place] [address] Care Team Providers Care Bulk Pallet Builder Name Role Phone Mona Hi DO Primary Care Provider [phone] Source Comments This information has been disclosed [...] release of HIV test results or diagnoses. [id number] Reason for Referral * Imaging/Cardiovascular Scan (Routine) - Pending Review Specialty Diagnoses / Procedures Referred By Inderjit tan Referred To Contact Cardiology Procedures Device Check - Remote Hubert Lux MD [address] [place] [address] Phone: tel: fax: Referral ID Status Reason Start Date Expiration Date V isits Requested Visits Authorized [id number] Pending Review 01/02/2025 07/01/2025 1 1 Encounter Details Date Type Department Care Team (Late st Contact Info) Description 12/31/2024 Orders Only [facility] Cardiac Stress Lab at [facility] [address] [facility] [address] [place] [phone] Hubert Lux MD [address] [place] [address] Social History Tobacco Use Types Packs/Day Years Used Date Smoking Tobacco: Never Smokeless Tobacco: Never Alcohol Use Standard Drinks/Week Comments Yes 7 (1 standard drink = 0.6 oz pur e alcohol) glass of wine nightly Utilities Answer Date Recorded In the past 12 months has e [employer], gas, oil, or water company threatened to [...] any time in the past 12 m [facility], were you homeless or living in [...] ORDERABL ES Final Result Performing Organization Address City/State/[facility] Co de Phone Number RADNET documented in this encounter Visit Diagnoses Not on filedocumented in this encounter Care Teams Bulk Pallet Builder Relationship Specialty Start Date End Date Mona Hi DO [address] [facility] [place] [address] PCP - General Family Medicine 10/22/24 documented as of this encounter
--- OUTSIDE RECORDS SUMMARY | 2025-06-14 14:07 | XMS_ITS | Clinical Summary ---
Author Organization [facility] Address [address] [place] [address] Phone Care Team Providers Care Bush And Vine Farmer Fruit Crops Name Role Phone Unavailable Primary Care Provider [...] drink = 0.6 oz pur e alcohol) [facility] Utilities Answer Date Recorded In the [...] often do you attend chur ch or holiness services? 1 to 4 times per year 10/31/2024 Do you belong to any clubs o r organizations such as anglican groups, unions, fraternal or athletic groups, or [...] and heating? Not hard at all 10/31/2024 [facility] - Occupational Stress [...] time in the past 12 m [facility], were you homeless or living in a correction (including now)? No 10/31/2024 Domestic Abuse Assessment [...] 10/29/2024 11:57 AM EST Plan of Treatment Health Maintenance Due Date Last Done Comments CT Colonography 1968 Colonoscopy 1968 Colorectal Cancer Screening 1968 FIT-DNA (Cologuard) 1968 FIT 1968 FOBT 1968 HPV/PAP 1968 Sigmoidoscopy 1968 Annual Visit Topic 1969 MMR Vaccines (1 of 1 - Stand grover series) 1969 Hepatitis C Screening 1986 Hepatitis B Vaccines (1 of 3 - 19+ 3-dose series) 1987 Pap Smear 1989 Cervical Cancer Screening 1998 HPV/Cotest 1998 HPV 1998 Mammogram 2008 DTaP/Tdap/Td Vaccines (2 - T d or Tdap) 06/06/2024 06/06/2014 HIB Vaccines Aged Out No longer eligi ble based on patient's age to complete this topic HPV Vaccines Aged Out No longer eligi ble based on patient's age to complete this topic Hepatitis A Vaccines Aged Out No long er eligible based on patient's age to complete this topic IPV Vaccines Aged Out No longer eligi ble based on patient's age to complete this topic Meningococcal Vaccine Aged Out No shai lula eligible based on patient's age to complete this topic Pneumococcal Vaccine: Pediat rics (0 to 5 years) and At-Risk Patients (6 to 64 Years) Aged Out No longer eligi ble based on patient's age to complete this topic Medical Devices Implanted Type Area Dietary Aid Device Identifier Shelf Expiration Date Model / [...]
--- OUTSIDE RECORDS SUMMARY | 2025-06-14 14:07 | XMS_ITS | Encounter Summary ---
Author Organization [facility] Address [facility] [place] [address] Care Team Providers Care Canoe Inspector Final Name Role Phone Mona Hi DO Primary Care Provider [phone] Source Comments This information has been disclosed [...] release of HIV test results or diagnoses. [id number] Reason for Referral * Imaging/Cardiovascular Scan (Routine) - Pending Review Specialty Diagnoses / Procedures Referred By Inderjit tan Referred To Contact Cardiology Procedures Device Check - Remote Hubert Lux MD [address] [place] [address] Phone: tel: fax: Referral ID Status Reason Start Date Expiration Date V isits Requested Visits Authorized [id number] Pending Review 01/31/2025 07/30/2025 1 1 Encounter Details Date Type Department Care Team (Late st Contact Info) Description 01/31/2025 Orders Only [facility] Cardiac Stress Lab at [facility] Office [address] [facility] [address] [place] [address] Hubert Lux MD [address] [place] [phone] Social History Tobacco Use Types Packs/Day Years Used Date Smoking Tobacco: Never Smokeless Tobacco: Never Alcohol Use Standard Drinks/Week Comments Yes 7 (1 standard drink = 0.6 oz pur e alcohol) glass of wine nightly Utilities Answer Date Recorded In the past 12 months has e [employer], gas, oil, or water company threatened to [...] ORDERABL ES Final Result Performing Organization Address City/State/[facility] Co de Phone Number RADNET documented in this encounter Visit Diagnoses Not on filedocumented in this encounter Care Teams Canoe Inspector Final Relationship Specialty Start Date End Date Mona Hi DO [address] [facility] [place] [address] PCP - General Family Medicine 10/22/24 documented as of this encounter
--- OUTSIDE RECORDS SUMMARY | 2025-06-14 14:07 | XMS_ITS | Clinical Summary ---
Author Organization [facility] Address [facility] [place] [address] Care Team Providers Care Metal Coater Name Role Phone Mona Hi DO Primary Care Provider [phone] Source Comments This information has been disclosed [...] therelease of HIV test results or diagnoses. [id number] Allergies No known active allergies Medications [...] Encounters Date Type Department Care Team Description 03/15/2025 Chart Note [facility] Cardiac Stress Lab at [facility] [address] [facility] [address] [place] [address] Elena Ashford Patient transferred out of [facility] network per request from from Last 3 Months Family History Medical [...] any time in the past 12 m [facility], were you homeless or living in a [facility] (including now)? No 10/21/2024 Yearly Questionnaire Answer [...] Immunization: Zoster (1 of 2) 2018 Immunization: DTaP/Tdap/Td (2 - Td or Tdap) 06/06/2024 06/06/2014 Depression Screening 01/28/2025 01/29/2024 Immunization: COVID-19 ( season) 2025 11/26/2020 Immunization: Influenza (MyChart) (#1) 2025 Alcohol Misuse Screening 10/21/2025 10/21/2024 Hepatitis C Screening (MyChart) Completed Medical Devices Implanted Type Area Mechanical Design Engineer Device Identifier Shelf Expiration Date Model / Serial / Lot Recorder Crd Linq Ii Ins Implanted:Qty: 1 on 10/28/2024 by Hubert Lux MD at [facility] Implantable Loop Recorder [employer] 02/01/2026 [id number] / [id number] / Device Closure Angio-Seal Vip Bondek-Plus Polyglyd L70 Cm Od8 Fr Odsec.[id number] In Vascular Hemostatic Bioabsorbable Insertion Sheath Guidewire Sterile Latex Free Disposable - [id number] Implanted:Qty: 1 on 10/21/2024 by Hilario Sainz MD at [facility] [employer] 12/16/2024 [id number] / / [id number] Procedures Procedure Name Priority Date/Time Associated Diagnosis Comments ED HCV AB REFLEX TO HCV QUANT Routine 10/21/2024 12:22 PM EST from Last 3 Months or Most Recently Relevant to Health Maintenance Results * ED HCV Ab Reflex To HCV Quant (10/21/2024 12:22 PM EST) HCV Ab Nonreactive Nonreactive 10/21/2024 2:39 PM EST [facility] Comment:Health Department no tified in accordance with reportable infectious disease guidelines. HCVAB Number 0.03 0.00 - 0.79 S/CO 10/21/2024 2:39 PM EST HEALTH LAB Serum 10/21/2024 12:2 2 PM EST 10/21/2024 1:14 PM EST us Long Flores MD LAB BLOOD ORDERABLES Final Resul t [facility] [address] [id number], [facility] from Last 3 Months or Most Recently Relevant to Health Maintenance Insurance EXCHANGE Advance Directives For more information, please contact: [phone] Documents on File Type Date Recorded Patient Planer Stone Expl anation Durable Power of Sort Manager - scan 10/31/2024 * Full Code (Latest Code Status on File) Date Activated Date Inactivated Comments 10/21/2024 3:01 PM 10/29/2024 4:08 PM Care Teams Metal Coater Relationship Specialty Start Date End Date Mona Hi DO [address] [facility] [place] [address] PCP - General Family Medicine 10/22/24
--- OUTSIDE RECORDS SUMMARY | 2025-06-14 14:07 | XMS_ITS | Encounter Summary ---
Author Organization [facility] Address [facility] [place] [address] Care Team Providers Care Outdoor Adventure Instructor Name Role Phone Mona Hi DO Primary Care Provider [phone] Source Comments This information has been disclosed [...] release of HIV test results or diagnoses. [id number] Reason for Referral * Imaging/Cardiovascular Scan (Routine) - Pending Review Specialty Diagnoses / Procedures Referred By Inderjit tan Referred To Contact Cardiology Procedures Device Check - Remote Hubert Lux MD [address] [place] [address] Phone: tel: fax: Referral ID Status Reason Start Date Expiration Date V isits Requested Visits Authorized [id number] Pending Review 03/10/2025 09/06/2025 1 1 Encounter Details Date Type Department Care Team (Late st Contact Info) Description 03/03/2025 Orders Only [facility] Cardiac Stress Lab at [facility] Office [address] [facility] [address] [place] [address] Hubert Lux MD [address] [place] [phone] Social History Tobacco Use Types Packs/Day Years Used Date Smoking Tobacco: Never Smokeless Tobacco: Never Alcohol Use Standard Drinks/Week Comments Yes 7 (1 standard drink = 0.6 oz pur e alcohol) glass of wine nightly Utilities Answer Date Recorded In the past 12 months has e [employer], gas, oil, or water company threatened to [...] any time in the past 12 m [facility], were you homeless or living in a nursing home (including now)? No 10/21/2024 Yearly Questionnaire [...] encounter Results * Device Check - Remote (03/10/2025 1:17 PM EDT) 03/03/2025 1:51 PM EDT Hubert Lux MD [facility] ORDERABL ES Final Result Performing Organization Address City/State/[facility] Co de Phone Number RADNET documented in this encounter Visit Diagnoses Not on filedocumented in this encounter Care Teams Outdoor Adventure Instructor Relationship Specialty Start Date End Date Mona Hi DO [address] [facility] [place] [address] PCP - General Family Medicine 10/22/24 documented as of this encounter
--- OUTSIDE RECORDS SUMMARY | 2025-06-14 14:07 | XMS_ITS | Encounter Summary ---
Author Organization [facility] Address [facility] [place] [address] Care Team Providers Care Printed Circuit Board Panels Developer Name Role Phone Mona Hi DO Primary Care Provider [phone] Source Comments This information has been disclosed [...] release of HIV test results or diagnoses. [id number] Reason for Referral * Imaging/Cardiovascular Scan (Routine) - Closed Specialty Diagnoses / Procedures Referred By Inderjit tan Referred To Contact Cardiology Procedures Device Check - Remote Jeremie Pope DO [address] [place] [address] Phone: tel: fax: Referral ID Status Reason Start Date Expiration Date Visits Re quested Visits Authorized [id number] Closed 11/30/2024 05/29/2025 1 1 Encounter Details Date Type Department Care Team (Late st Contact Info) Description 11/30/2024 Orders Only [facility] Cardiac Stress Lab at [facility] Office [address] [place] [phone] Jeremie Pope DO [address] [place] [phone] Social History Tobacco Use Types Packs/Day Years Used Date Smoking Tobacco: Never Smokeless Tobacco: Never Alcohol Use Standard Drinks/Week Comments Yes 7 (1 standard drink = 0.6 oz pur e alcohol) glass of wine nightly Utilities Answer Date Recorded In the past 12 months has th e [employer], gas, oil, or water company threatened to [...] any time in the past 12 m [facility], were you homeless or living [...] CV CARDIAC SERVICES ORDERABLES F inal Result Performing Organization Address City/State/[facility] Co de Phone Number RADNET documented in this encounter Visit Diagnoses Not on filedocumented in this encounter Care Teams Printed Circuit Board Panels Developer Relationship Specialty Start Date End Date Mona Hi DO [address] [facility] [address] [place], [place] [id number] PCP - General Family Medicine 10/22/24 documented as of this encounter
[2025-06-14 14:23] LABS: Hematocrit 42.7 % (37.0-47.0); Hemoglobin 14.0 g/dL (12.2-16.2); Immature Granulocytes % 0.3 %; Mean Corpuscular HGB Conc 32.8 g/dL (31.8-35.4); Mean Corpuscular Hemoglobin 32.2 pg (27.0-31.2); Mean Corpuscular Volume 98.2 fl (81-99); Nucleated Red Blood Cells % 0 %; Platelet Count 241 K/mm3 (142-424); Red Blood Count 4.35 M/mm3 (4.20-5.40); Red Cell Distribution Width-SD 49.4 fL; White Blood Count 6.9 K/mm3 (4.8-10.8)
[2025-06-14 15:51] LABS: Alanine Aminotransferase 38 U/L (12-78); Albumin Level 4.5 g/dl (3.5-5.0); Alkaline Phosphatase 97 U/L (38-126); Anion Gap 17.9 mEq/L (5-15); Aspartate Amino Transferase 57 U/L (14-36); Bilirubin,Direct 0.3 mg/dl (0.0-0.4); Bilirubin,Indirect 0.7 mg/dL (0.0-0.9); Bilirubin,Total 1.0 mg/dl (0.2-1.3); Bilirubin,Unconjugated 0.6 mg/dL (0.0-1.1); Blood Urea Nitrogen 11 mg/dl (7-17); Calcium 9.3 mg/dl (8.4-10.2); Carbon Dioxide 21 mmol/L (22.0-30.0); Chloride 102 mmol/L (98-107); Cholesterol 108 mg/dl (140-200); Creatinine,Serum 0.50 mg/dl (0.52-1.04); Estimated Glomerular Filt Rate 127 ml/min (>60); GFR (African American) 154 ML/MIN (>60); Glucose 90 mg/dl (74-100); HDL Cholesterol 62 mg/dl (40-60); Magnesium 1.7 mg/dl (1.6-2.3); Potassium 4.9 mmoL/L (3.5-5.1); Sodium 136 mmol/L (136-145); Total Protein,Serum 6.9 g/dl (6.3-8.2); Triglycerides 64 mg/dl (30-150)
[2025-06-14 16:21] LABS: Thyroid Stimulating Hormone 1.02 uIU/mL (0.465-4.68)
[2025-06-14 17:36] LABS: Free T4 (Free Thyroxine) 0.85 ng/dl (0.78-2.19)
== END 2025-06-14 23:59 | disposition home or self-care (01) ==
LOC: LAB 14:04
PROVIDERS: PCP Nurse Practitioner Family; Visit Provider Internal Medicine
DX: E78.5 Hyperlipidemia, unspecified (principal)
CPT/HCPCS: 36415; 80048; 80061; 80076; 83735; 84439; 84443; 85025